=== PATIENT | male | born 1990 | race Caucasian/White ===

== ENCOUNTER 2016-11-14 07:08 | Emergency (ER) | payer OTHER ==
[2016-11-14] MEDS ORDERED: KETOROLAC 30 MG/ML 1 ML VIAL IVP STA (07:28)
[2016-11-14] MEDS ORDERED: SODIUM CHLORIDE 0.9% 1,000 ML IV STA (07:28)
[2016-11-14] MEDS ORDERED: SODIUM CHLORIDE 0.9% 2,000 ML IV ONE (07:28)
[2016-11-14] MEDS ORDERED: diphenhydrAMINE 50 MG/ML 1 ML VIAL IVP STA (07:28)
[2016-11-14] MEDS ORDERED: PROMETHAZINE INJ 25 MG in SODIUM CHLORIDE 0.9% 50 ML IVPB STA (07:29)
--- NOTE | 2016-11-14 07:32 | ED ---
Headache HPI - General Chief Complaint: Headache Stated Complaint: Headache/Vomiting Time Seen by Provider: 11/14/16 07:18 Source: patient, family, RN notes reviewed Mode of arrival: ambulatory Limitations: no limitations - History of Present Illness Initial Comments: Is a 26-year-old male with a history of migraine headaches who states he had the onset of his typical bitemporal headache about 24 hours ago. He started developing nausea and vomiting this morning. Feels lightheaded dizzy he has had some visual disturbances consistent with his previous episodes of migraine. He states this morning it was sharp 10/10 severity no focal weakness is described it. He also does state he was recently diagnosed with hepatitis C lab work done in his doctor's office. He has no other new complaints at this time no fevers chills or sweats. He does still drive. MD Complaint: headache, "migraine", other - Related Data Home Medications Medication Instructions Recorded Confirmed No Known Home Medications [No 11/14/16 11/14/16 Known Home Medications] Allergies Allergy/AdvReac Type Severity Reaction Status Date / Time No Known Allergies Allergy Verified 11/14/16 07:36 Review of Systems ROS Statement: Those systems with pertinent positive or pertinent negative responses have been documented in the HPI. ROS Other: All systems not noted in ROS Statement are negative. Past Medical History Additional Past Medical History / Comment(s): kidney stones History of Any Multi-Drug Resistant Organisms: None Reported Past Surgical History: Hernia Repair Past Psychological History: No Psychological Hx Reported Smoking Status: Current every day smoker Past Alcohol Use History: None Reported Past Drug Use History: None Reported General Exam - General Exam Comments Initial Comments: This is a well-developed well-nourished awake alert oriented 3 male Limitations: no limitations General appearance: alert, anxious Head exam: Present: atraumatic, normocephalic, normal inspection Eye exam: Present: normal appearance, PERRL, EOMI. Absent: scleral icterus, conjunctival injection, periorbital swelling ENT exam: Present: mucous membranes dry Neck exam: Present: normal inspection. Absent: tenderness, meningismus, lymphadenopathy Respiratory exam: Present: normal lung sounds bilaterally. Absent: respiratory distress, wheezes, rales, rhonchi, stridor Cardiovascular Exam: Present: regular rate, normal rhythm, normal heart sounds. Absent: systolic murmur, diastolic murmur, rubs, gallop, clicks GI/Abdominal exam: Present: soft, normal bowel sounds. Absent: distended, tenderness, guarding, rebound, rigid Extremities exam: Present: normal inspection, full ROM, normal capillary refill. Absent: tenderness, pedal edema, joint swelling, calf tenderness Back exam: Present: normal inspection Neurological exam: Present: alert, oriented X3, CN II-XII intact Psychiatric exam: Present: normal affect, normal mood Skin exam: Present: warm, dry, intact, normal color. Absent: rash Course Vital Signs 11/14/16 11/14/16 11/14/16 07:11 08:45 10:25 Temperature 97.0 F L 97.6 F 98.2 F Pulse Rate 80 57 L 60 Respiratory 20 20 16 Rate Blood Pressure 117/65 148/77 120/63 O2 Sat by Pulse 100 96 98 Oximetry Medical Decision Making - Medical Decision Making The patient apparently was feeling better and did not want to stay to get a CAT scan done and it was later found out that he had been using heroin though his significant other was not aware of and apparently initially. She is agreed to take him home. Presumably the headache is improved the patient is leaving AGAINST MEDICAL ADVICE. CAT scan was ordered and he does not want to stay and get it done. - Lab Data Result diagrams: 11/14/16 07:40 11/14/16 07:40 Lab Results 11/14/16 11/14/16 11/14/16 Range/Units 07:40 07:40 09:15 WBC 4.3 (3.8-10.6) k/uL RBC 4.46 (4.30-5.90) m/uL Hgb 13.9 (13.0-17.5) gm/dL Hct 41.4 (39.0-53.0) % MCV 92.9 (80.0-100.0) fL MCH 31.3 (25.0-35.0) pg MCHC 33.6 (31.0-37.0) g/dL RDW 12.7 (11.5-15.5) % Plt Count 177 (150-450) k/uL Neutrophils % 58 % Lymphocytes % 29 % Monocytes % 8 % Eosinophils % 1 % Basophils % 0 % Neutrophils # 2.5 (1.3-7.7) k/uL Lymphocytes # 1.3 (1.0-4.8) k/uL Monocytes # 0.3 (0-1.0) k/uL Eosinophils # 0.0 (0-0.7) k/uL Basophils # 0.0 (0-0.2) k/uL Sodium 142 (137-145) mmol/L Potassium 4.1 (3.5-5.1) mmol/L Chloride 100 (98-107) mmol/L Carbon Dioxide 31 H (22-30) mmol/L Anion Gap 11 mmol/L BUN 10 (9-20) mg/dL Creatinine 0.62 L (0.66-1.25) mg/dL Est GFR (MDRD) Af Amer >60 (>60 ml/min/1.73 sqM) Est GFR (MDRD) Non-Af >60 (>60 ml/min/1.73 sqM) Glucose 105 H (74-99) mg/dL Osmolality 287 (280-301) mosm/kg Calcium 9.2 (8.4-10.2) mg/dL Magnesium 2.2 (1.6-2.3) mg/dL Total Bilirubin 0.6 (0.2-1.3) mg/dL AST 23 (17-59) U/L ALT 23 (21-72) U/L Alkaline Phosphatase 117 (38-126) U/L Ammonia (<30) umol/L Total Protein 7.8 (6.3-8.2) g/dL Albumin 4.4 (3.5-5.0) g/dL Amylase 42 (30-110) U/L Lipase 170 (23-300) U/L Serum Alcohol <10 mg/dL 11/14/16 Range/Units 09:15 WBC (3.8-10.6) k/uL RBC (4.30-5.90) m/uL Hgb (13.0-17.5) gm/dL Hct (39.0-53.0) % MCV (80.0-100.0) fL MCH (25.0-35.0) pg MCHC (31.0-37.0) g/dL RDW (11.5-15.5) % Plt Count (150-450) k/uL Neutrophils % % Lymphocytes % % Monocytes % % Eosinophils % % Basophils % % Neutrophils # (1.3-7.7) k/uL Lymphocytes # (1.0-4.8) k/uL Monocytes # (0-1.0) k/uL Eosinophils # (0-0.7) k/uL Basophils # (0-0.2) k/uL Sodium (137-145) mmol/L Potassium (3.5-5.1) mmol/L Chloride (98-107) mmol/L Carbon Dioxide (22-30) mmol/L Anion Gap mmol/L BUN (9-20) mg/dL Creatinine (0.66-1.25) mg/dL Est GFR (MDRD) Af Amer (>60 ml/min/1.73 sqM) Est GFR (MDRD) Non-Af (>60 ml/min/1.73 sqM) Glucose (74-99) mg/dL Osmolality (280-301) mosm/kg Calcium (8.4-10.2) mg/dL Magnesium (1.6-2.3) mg/dL Total Bilirubin (0.2-1.3) mg/dL AST (17-59) U/L ALT (21-72) U/L Alkaline Phosphatase (38-126) U/L Ammonia <9 (<30) umol/L Total Protein (6.3-8.2) g/dL Albumin (3.5-5.0) g/dL Amylase (30-110) U/L Lipase (23-300) U/L Serum Alcohol mg/dL Disposition Clinical Impression: Migraine, Heroin abuse Disposition: Left Against Medical Advice Condition: Stable
[2016-11-14 08:20] LABS: ALT 23 U/L (21-72); AST 23 U/L (17-59); Alkaline Phosphatase 117 U/L (38-126); Anion Gap 11 mmol/L; Blood Urea Nitrogen 10 mg/dL (9-20); Calcium 9.2 mg/dL (8.4-10.2); Carbon Dioxide 31 mmol/L (22-30); Chloride 100 mmol/L (98-107); Glucose 105 mg/dL (74-99); Magnesium 2.2 mg/dL (1.6-2.3); Non-African American GFR(MDRD) >60 (>60 ml/min/1.73 sqM); Potassium 4.1 mmol/L (3.5-5.1); Sodium 142 mmol/L (137-145); Total Bilirubin 0.6 mg/dL (0.2-1.3); Total Protein 7.8 g/dL (6.3-8.2)
[2016-11-14 08:21] LABS: Basophils % (A) 0 %; CH 31.9; CHCM 34.5; Eosinophils % (A) 1 %; HCT 41.4 % (39.0-53.0); HDW 2.55; HGB 13.9 gm/dL (13.0-17.5); Luc # (Auto) 0.18; Luc % (Auto) 4; Lymphocytes # (A) 1.3 k/uL (1.0-4.8); Lymphocytes % (A) 29 %; MCH 31.3 pg (25.0-35.0); MCHC 33.6 g/dL (31.0-37.0); MCV 92.9 fL (80.0-100.0); Mean Platelet Volume 8.8; Monocytes # (A) 0.3 k/uL (0-1.0); Monocytes % (A) 8 %; Neutrophils # (A) 2.5 k/uL (1.3-7.7); Neutrophils % (A) 58 %; RBC 4.46 m/uL (4.30-5.90); RDW 12.7 % (11.5-15.5); WBC 4.3 k/uL (3.8-10.6); WBC (Perox) 4.07
[2016-11-14 09:52] LABS: Alcohol <10 mg/dL; Amylase 42 U/L (30-110)
[2016-11-14 10:27] VITALS: BP 120/63; PULSE 60; RESP 16; TEMP 98.2
== END 2016-11-14 10:25 | disposition left against medical advice (07) ==
LOC: EC 07:08
DX: F11.10 Opioid abuse, uncomplicated (principal); G43.909 Migraine, unspecified, not intractable, without status migrainosus; F17.200 Nicotine dependence, unspecified, uncomplicated; Z53.20 Procedure and treatment not carried out because of patient's decision for unspecified reasons
CPT/HCPCS: 99283; 96374; 96375 ×2; 96361 ×2; 36415; 83930; 80053; 82140; 82150; 83690; 83735; 85025; 80320; J1200; J2550; J1885

== ENCOUNTER 2019-10-18 15:40 | Emergency (ER) | payer OTHER ==
[2019-10-18 15:56] VITALS: BP 138/75; PULSE 88; RESP 18; TEMP 98.4
--- NOTE | 2019-10-18 16:16 | ED ---
General Adult HPI - General Chief complaint: Upper Respiratory Infection Stated complaint: Bad cough Time Seen by Provider: 10/18/19 16:03 Source: patient Mode of arrival: ambulatory Limitations: no limitations - History of Present Illness Initial comments: Patient is a 29-year-old male, smoker presenting to emergency Department with a chief complaint of a cough. States the cough has been ongoing for past 4 months with only mild improvement in symptoms. Patient reports he was very seen by his primary care who did not do anything for him. Patient reports the cough has been gradually getting worse. States the cough is productive but no sputum production. Denies any nausea vomiting diarrhea. Does report occasional wheezing. No history of asthma but does have history of smoking. Patient reports he stopped about one month ago with a subcostal continues. Denies any fever chills at home. Patient is also complaining of right sided pain near the his right scapula. Patient states the pain occasionally causes a sharp pain sensation going to his elbow. Patient states that he is told [employer], [employer] or paying for living. 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 Denies any chest pain nausea vomiting diarrhea - Related Data Previous Rx's Medication Instructions Recorded Albuterol Inhaler [Ventolin Hfa 1 - 2 puff INHALATION RT-Q6H PRN 10/18/19 Inhaler] #1 inhaler Benzonatate [Tessalon Perles] 100 mg PO TID PRN #15 capsule 10/18/19 predniSONE 50 mg PO DAILY #5 tab 10/18/19 Allergies Allergy/AdvReac Type Severity Reaction Status Date / Time No Known Allergies Allergy Verified 11/14/16 07:36 Review of Systems ROS Statement: Those systems with pertinent positive or pertinent negative responses have been documented in the HPI. ROS Other: All systems not noted in ROS Statement are negative. Past Medical History Additional Past Medical History / Comment(s): kidney stones History of Any Multi-Drug Resistant Organisms: None Reported Past Surgical History: Hernia Repair Past Psychological History: No Psychological Hx Reported Smoking Status: Current every day smoker Past Alcohol Use History: None Reported Past Drug Use History: None Reported General Exam Limitations: no limitations General appearance: alert, in no apparent distress Head exam: Present: atraumatic, normocephalic, normal inspection Eye exam: Present: normal appearance ENT exam: Present: normal exam, normal oropharynx, mucous membranes moist, TM's normal bilaterally, normal external ear exam Neck exam: Present: normal inspection, full ROM. Absent: tenderness, lymphadenopathy Respiratory exam: Present: normal lung sounds bilaterally. Absent: wheezes, rales, chest wall tenderness, accessory muscle use Cardiovascular Exam: Present: regular rate, normal rhythm, normal heart sounds GI/Abdominal exam: Present: soft, normal bowel sounds Extremities exam: Present: normal inspection, full ROM (4 range of motion in bilateral partial minutes.), tenderness (Tenderness along the medial aspect of her right scapula.), normal capillary refill, other (+2 ulnar radial pulses bilaterally.) Back exam: Present: normal inspection, full ROM Neurological exam: Present: alert, oriented X3 Psychiatric exam: Present: normal affect, normal mood Skin exam: Present: warm, dry, intact, normal color Course Vital Signs 10/18/19 15:53 Temperature 98.4 F Pulse Rate 88 Respiratory 18 Rate Blood Pressure 138/75 O2 Sat by Pulse 96 Oximetry Medical Decision Making - Medical Decision Making Patient is a 29-year-old male presenting to emergency Department with a chief complaint of cough and ankle pain. I exam patient is in respiratory distress. Patient is a smoker. I advised the patient if he develops chronic bronchitis and is a smoker, cough, last up to several weeks. Patient is not wheezing states the cough is preventing him from sleeping. Patient has no history of asthma. Patient will be discharged with Tessalon Perles, prednisone and albuterol inhaler. Considering the tenderness near the scapular region I suspect that is secondary to his work. 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 He uses his right hand to care nail gun which is quite heavy. Patient does have pinpoint tenderness along the medial aspect of the right scapula and no vertebral tenderness. Patient advised to perform stretches before work to alleviate some of the discomfort. He was advised to alternate between Tylenol and Motrin for pain control. I suspect this is all related to muscle strain. Patient advised to follow-up with primary care. Strict return parameters were thoroughly discussed the patient was in a standing agreeable. Case discussed with physician. Disposition Clinical Impression: Nonproductive cough, Muscle strain Disposition: HOME SELF-CARE Condition: Stable Instructions (If sedation given, give patient instructions): Muscle Strain (DC) Additional Instructions: Take prescribed medication as directed. Follow-up with primary care. Return to emergency department if symptoms worsen. Prescriptions: predniSONE 50 mg PO DAILY #5 tab Benzonatate [Tessalon Perles] 100 mg PO TID PRN #15 capsule PRN Reason: Cough Albuterol Inhaler [Ventolin Hfa Inhaler] 1 - 2 puff INHALATION RT-Q6H PRN #1 inhaler PRN Reason: Wheezing Is patient prescribed a controlled substance at d/c from ED?: No Referrals: Jamel Scott MD [Primary Care Provider] - 1-2 days Time of Disposition: 16:16
== END 2019-10-18 16:21 | disposition home or self-care (01) ==
LOC: EC 15:40
DX: S46.811A Strain of other muscles, fascia and tendons at shoulder and upper arm level, right arm, initial encounter (principal); R05 Cough; F17.200 Nicotine dependence, unspecified, uncomplicated; X58.XXXA Exposure to other specified factors, initial encounter
CPT/HCPCS: 99284

== ENCOUNTER 2022-05-21 12:31 | Emergency (ER) | payer OTHER ==
[2022-05-21 14:02] VITALS: BP 145/80; PULSE 100; RESP 16; TEMP 98.6
--- NOTE | 2022-05-21 15:47 | XR ---
EXAMINATION TYPE: XR ankle complete RT DATE OF EXAM: 05/21/2022 COMPARISON: NONE HISTORY: Cellulitis TECHNIQUE: 3 views FINDINGS: There is mild soft tissue swelling around the ankle. I see no fracture nor dislocation. Lena nt spaces are normal. IMPRESSION: Soft tissue swelling. No fracture.
--- NOTE | 2022-05-21 17:30 | ED ---
Skin/Abscess/FB HPI - General Chief complaint: Skin/Abscess/Foreign Body Stated complaint: infection rt foot Time Seen by Provider: 05/21/22 14:58 Source: patient Mode of arrival: ambulatory Limitations: no limitations - History of Present Illness Initial comments: Patient is a 32-year-old male presenting for evaluation of potential infection to the right lower leg. Patient was seen here recently and diagnosed with cellulitis and has been taking the antibiotics prescribed to him. Patient states that he is concerned it is getting worse as there is increased swelling to the area. No discharge or skin breaks. No fever or chills. No red streaking up the leg. No numbness, tingling, weakness, loss of range of motion. - Related Data Previous Rx's Medication Instructions Recorded Albuterol Inhaler [Ventolin Hfa 1 - 2 puff INHALATION RT-Q6H PRN 10/18/19 Inhaler] #1 inhaler Benzonatate [Tessalon Perles] 100 mg PO TID PRN #15 capsule 10/18/19 predniSONE 50 mg PO DAILY #5 tab 10/18/19 Cephalexin [Keflex] 500 mg PO Q6HR 7 Days #28 cap 05/08/22 Ibuprofen [Motrin] 600 mg PO Q8HR PRN #30 tab 05/08/22 Allergies Allergy/AdvReac Type Severity Reaction Status Date / Time No Known Allergies Allergy Verified 05/21/22 14:02 Review of Systems ROS Statement: Those systems with pertinent positive or pertinent negative responses have been documented in the HPI. ROS Other: All systems not noted in ROS Statement are negative. Past Medical History Past Medical History: Seizure Disorder Additional Past Medical History / Comment(s): kidney stones History of Any Multi-Drug Resistant Organisms: None Reported Past Surgical History: Hernia Repair, Orthopedic Surgery Additional Past Surgical History / Comment(s): hand surgery, elbow, bilateral capal tunnel. Past Psychological History: No Psychological Hx Reported Smoking Status: Current every day smoker Past Alcohol Use History: Daily Past Drug Use History: Marijuana General Exam Limitations: no limitations General appearance: alert, in no apparent distress Head exam: Present: atraumatic, normocephalic, normal inspection Eye exam: Present: normal appearance, EOMI. Absent: scleral icterus, periorbital swelling Neck exam: Present: normal inspection Right Ankle exam: Present: full ROM, tenderness, swelling. Absent: erythema Neurovascular tendon exam: Present: no vascular compromise. Absent: motor deficit, sensory deficit Neurological exam: Present: alert, oriented X3, CN II-XII intact Psychiatric exam: Present: normal affect, normal mood Skin exam: Present: warm, dry, intact, normal color. Absent: rash Course Vital Signs 05/21/22 13:59 Temperature 98.6 F Pulse Rate 100 Respiratory 16 Rate Blood Pressure 145/80 O2 Sat by Pulse 96 Oximetry Medical Decision Making - Medical Decision Making Patient is a 32-year-old male presenting with chief complaint of cellulitis to the right foot. Patient was seen here few days ago for the same complaint and given antibiotics, he has been taking the antibiotics and states he is concerned it is getting worse. He admits to increased pain and swelling. On examination there is some swelling to the right ankle and lower leg, no redness. Patient is afebrile and nontoxic tachycardic, he is A&O 4 and nontoxic appearing. Labs and imaging are ordered. X-ray shows soft tissue swelling with no fracture. Patient eloped before obtaining lab work and diagnosis. Patient should follow- up with his PCP and report back to ER with any new or worsening symptoms. Disposition Clinical Impression: Ankle swelling Narrative: Patient left before receiving lab work and diagnosis Disposition: Left Against Medical Advice Condition: Undetermined Referrals: None,Stated [Primary Care Provider] - 1-2 days Time of Disposition: 17:30
== END 2022-05-21 19:49 | disposition left against medical advice (07) ==
LOC: EC 12:31
DX: M25.471 Effusion, right ankle (principal); F17.200 Nicotine dependence, unspecified, uncomplicated; Z53.29 Procedure and treatment not carried out because of patient's decision for other reasons
CPT/HCPCS: 99283

== ENCOUNTER 2023-03-16 19:03 | Emergency (ER) | payer OTHER ==
[2023-03-16 19:14] LABS: Glucose,Whole Blood 90 mg/dL (70-110)
[2023-03-16] MEDS ORDERED: SODIUM CHLORIDE 0.9% 1,000 ML IV ONE (19:21)
[2023-03-16] MEDS ORDERED: LORazepam 2 MG/ML INJ IV STA (19:22)
[2023-03-16] MEDS ORDERED: ZIPRASIDONE 20 MG VIAL IM STA (19:23)
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
[2023-03-16 19:39] LABS: Basophils % (A) 0 %; Eosinophils # (A) 0.2 k/uL (0-0.7); Eosinophils % (A) 3 %; HCT 39.9 % (39.0-53.0); HGB 13.8 gm/dL (13.0-17.5); Lymphocytes # (A) 1.5 k/uL (1.0-4.8); Lymphocytes % (A) 24 %; MCH 32.4 pg (25.0-35.0); MCHC 34.5 g/dL (31.0-37.0); MCV 93.9 fL (80.0-100.0); Mean Platelet Volume 9.1; Monocytes # (A) 0.8 k/uL (0-1.0); Monocytes % (A) 13 %; Neutrophils # (A) 3.4 k/uL (1.3-7.7); Neutrophils % (A) 56 %; Platelet Count 204 k/uL (150-450); RBC 4.25 m/uL (4.30-5.90); RDW 12.2 % (11.5-15.5)
[2023-03-16 19:58] LABS: ALT 43 U/L (4-49); AST 87 U/L (17-59); Acetaminophen <10.0 ug/mL; African American GFR (CKD) >90 (>60 ml/min/1.73 sqM); Albumin 4.5 g/dL (3.5-5.0); Alkaline Phosphatase 109 U/L (38-126); Anion Gap 11 mmol/L; Blood Urea Nitrogen 19 mg/dL (9-20); Calcium 8.6 mg/dL (8.4-10.2); Carbon Dioxide 27 mmol/L (22-30); Chloride 102 mmol/L (98-107); Glucose 87 mg/dL (74-99); Non-African American GFR(CKD) >90 (>60 ml/min/1.73 sqM); Potassium 3.1 mmol/L (3.5-5.1); Salicylate <1.0 mg/dL; Sodium 140 mmol/L (137-145); Total Protein 7.8 g/dL (6.3-8.2)
[2023-03-16 20:07] LABS: Alcohol 118 mg/dL
[2023-03-16 20:07] LABS: Amphetamine Screen,Urine Detected (NotDetected); Barbiturate Screen,Urine Not Detected (NotDetected); Benzodiazepines Screen,Urine Not Detected (NotDetected); Cocaine Screen,Urine Not Detected (NotDetected); Methadone Screen, Urine Not Detected (NotDetected); Opiate Screen,Urine Not Detected (NotDetected); Oxycodone Screen, Urine Not Detected (NotDetected); Phencyclidine Screen,Urine Not Detected (NotDetected); Tricyclic Antidepressant,Urine Not Detected (NotDetected); Urn Cannabinoid Scrn Detected (NotDetected)
[2023-03-17 03:34] VITALS: BP 102/66; PULSE 91; RESP 16
== END 2023-03-17 03:40 | disposition home or self-care (01) ==
LOC: EC 19:03
DX: F10.129 Alcohol abuse with intoxication, unspecified (principal); F15.10 Other stimulant abuse, uncomplicated; F17.200 Nicotine dependence, unspecified, uncomplicated; F12.90 Cannabis use, unspecified, uncomplicated
CPT/HCPCS: 36415; 80053; 85025; 80306; 80143; 80179; 99285; 96374; 96361; 96372; G0480; J2060; J3486; 80320

== ENCOUNTER 2023-03-24 02:03 | Emergency (ER) | payer OTHER ==
[2023-03-24] MEDS ORDERED: LORazepam 2 MG/ML INJ IV STA (02:14)
[2023-03-24] MEDS ORDERED: SODIUM CHLORIDE 0.9% 1,000 ML IV STA (02:15)
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
[2023-03-24 03:08] LABS: HCT 36.3 % (39.0-53.0); HGB 12.6 gm/dL (13.0-17.5); MCH 31.6 pg (25.0-35.0); MCHC 34.6 g/dL (31.0-37.0); MCV 91.1 fL (80.0-100.0); Mean Platelet Volume 9.7; Platelet Count 170 k/uL (150-450); RBC 3.98 m/uL (4.30-5.90); RDW 12.6 % (11.5-15.5); WBC 4.3 k/uL (3.8-10.6)
[2023-03-24 03:10] LABS: ALT 45 U/L (4-49); AST 73 U/L (17-59); Acetaminophen <10.0 ug/mL; African American GFR (CKD) >90 (>60 ml/min/1.73 sqM); Alcohol <10 mg/dL; Alkaline Phosphatase 105 U/L (38-126); Anion Gap 10 mmol/L; Blood Urea Nitrogen 19 mg/dL (9-20); Calcium 8.3 mg/dL (8.4-10.2); Carbon Dioxide 26 mmol/L (22-30); Chloride 98 mmol/L (98-107); Creatine Kinase 874 U/L (55-170); Glucose 145 mg/dL (74-99); Magnesium 2.2 mg/dL (1.6-2.3); Non-African American GFR(CKD) >90 (>60 ml/min/1.73 sqM); Potassium 2.9 mmol/L (3.5-5.1); Salicylate <1.0 mg/dL; Sodium 134 mmol/L (137-145); Total Bilirubin 0.7 mg/dL (0.2-1.3); Total Protein 7.3 g/dL (6.3-8.2)
[2023-03-24 03:22] LABS: Band Neutrophils % 1 %; Eosinophils # (M) 0.17 k/uL (0-0.7); Lymphocytes # (M) 0.65 k/uL (1.0-4.8); Neutrophils % (M) 66 %; Nucleated Red Blood Cells 0 /100 WBC (0-0); Total Cells Counted 100
[2023-03-24 03:27] LABS: Partial Thromboplastin Time 21.6 sec (22.0-30.0); Prothrombin Time 10.8 sec (9.0-12.0)
[2023-03-24 05:13] VITALS: BP 128/86; PULSE 85; RESP 18; TEMP 98.3
== END 2023-03-24 05:30 | disposition home or self-care (01) ==
LOC: EC 02:03
DX: T50.901A Poisoning by unspecified drugs, medicaments and biological substances, accidental (unintentional), initial encounter (principal); G40.909 Epilepsy, unspecified, not intractable, without status epilepticus; F17.200 Nicotine dependence, unspecified, uncomplicated; F12.90 Cannabis use, unspecified, uncomplicated; F15.90 Other stimulant use, unspecified, uncomplicated; Z79.899 Other long term (current) drug therapy
CPT/HCPCS: 36415; 93005; 80053; 82550; 83605; 83735; 85025; 85610; 85730; 80143; 80179; 99284; 96374; 96361; G0480; J2060; 80320